=== PATIENT | female | born 1995 | race Caucasian/White ===

== ENCOUNTER 2019-11-24 21:43 | Emergency (ER) | payer SELFPAY ==
[~2019-11-24] VITALS: Ht 162.6 cm; Wt 56.2 kg
[2019-11-24 21:47] VITALS: BP 133/80
[2019-11-24] MEDS ORDERED: LIDOCAINE-MPF 1%, 5ML INFIL ONE (22:30)
[2019-11-24] MEDS ORDERED: NEOSPORIN OINT. PKT 1 PACKET ONE (22:37)
== END 2019-11-24 22:58 | disposition home or self-care (01) ==
LOC: ED 22:52
DX: S01.122A Laceration with foreign body of left eyelid and periocular area, initial encounter (principal); F17.210 Nicotine dependence, cigarettes, uncomplicated; H00.036 Abscess of eyelid left eye, unspecified eyelid; X58.XXXA Exposure to other specified factors, initial encounter; Y93.89 Activity, other specified; Y92.89 Other specified places as the place of occurrence of the external cause; Y99.8 Other external cause status
CPT/HCPCS: 10120; 99284

== ENCOUNTER 2020-12-27 15:47 | Emergency (ER) | payer MEDICAID ==
[~2020-12-27] VITALS: Ht 162.6 cm; Wt 59.0 kg
[2020-12-27 15:52] VITALS: BP 112/66
[2020-12-27 17:20] LABS: BASOPHILS % (AUTO) 0 % (0-1); EOSINOPHILS % (AUTO) 2 % (1-7); LYMPHOCYTES % (AUTO) 20 % (22-44); MEAN CORPUSCULAR HEMOGLOBIN 29.8 pg (27.0-34.8); MEAN CORPUSCULAR HGB CONC 34.2 g/dL (32.4-35.8); MEAN PLATELET VOLUME 7.1 fL (7.4-10.4); MONOCYTES % (AUTO) 4 % (2-9); NEUTROPHILS % (AUTO) 75 % (42-75); PLATELET COUNT 371 x10^3/uL (130-400); RED BLOOD COUNT 4.69 x10^6/uL (3.82-5.3); RED CELL DISTRIBUTION WIDTH 16.1 % (9.6-15.2)
[2020-12-27 17:24] LABS: MD NO
--- NOTE | 2020-12-27 17:29 | NUR ---
PT IN [place]
[2020-12-27 17:30] LABS: ALBUMIN 3.6 g/dL (3.4-5.0); ANION GAP 6 mmol/L (5-15); CALCIUM 9.1 mg/dL (8.5-10.1); CHLORIDE 109 mmol/L (98-107); CREATININE 0.67 mg/dL (0.55-1.02)
--- NOTE | 2020-12-27 17:44 | NUR ---
PT BACK FROM [place]. AMBULATED TO BATHROOM FOR UA SAMPLE
--- NOTE | 2020-12-27 18:06 | NUR ---
PT AMA, SHE IS UNABLE TO STAY, EDUCATED ABOUT LEAVING AMA AND NOT BEING TREATED. MORTEZA WE[facility] AWARE.
== END 2020-12-27 18:10 ==
LOC: ED 17:16
DX: O20.0 Threatened abortion (principal)
CPT/HCPCS: 36415; 76801; 80048; 82040; 84702; 85025; 86901; 99284